=== PATIENT | female | born 1965 | race Caucasian/White ===

== ENCOUNTER 2018-07-10 16:30 | Emergency (ER) | payer OTHER ==
--- NOTE | 2018-07-10 16:33 | EDPHY ---
H & P Source: Patient Exam Limitations: No limitations Time Seen by Provider: 07/10/18 16:32 HPI/ROS: CHIEF COMPLAINT: [ ] HISTORY OF PRESENT ILLNESS: [Need 4: Location, Duration, Severity, Quality, Context, Timing Modifying Factors, Associated S&S] REVIEW OF SYSTEMS: A comprehensive 10 point review of systems is otherwise negative aside from elements mentioned in the history of present illness. (Joselito Diez) - Physical Exam Exam: General Appearance: [Alert, no distress] Eyes: [Pupils equal and round no pallor or injection] ENT, Mouth: [Mucous membranes moist] Respiratory: [There are no retractions, lungs are clear to auscultation] Cardiovascular: [Regular rate and rhythm] Gastrointestinal: [Abdomen is soft and nontender, no masses, bowel sounds normal] Neurological: [A&O, normal motor function, normal sensory exam, normal cranial nerves] Skin: [Warm and dry, no rashes] Musculoskeletal: [Neck is supple nontender] Extremities: [symmetrical, full range of motion] Psychiatric: [Patient is oriented X 3, there is no agitation] (Joselito Diez ) Departure - Departure Referrals: Patient,NotPresent [Primary Care Provider] - As per Instructions
[2018-07-10] MEDS ORDERED: NS 1,000 ML IV ONE (17:00)
[2018-07-10] MEDS ORDERED: ONDANSETRON 4 MG/2 ML VIAL IVP ONE (17:00)
[2018-07-10] MEDS ORDERED: MECLIZINE HCL 25 MG TAB PO ONE ×2 (17:01→18:28)
--- NOTE | 2018-07-10 17:06 | EDPHY ---
H & P Time Seen by Provider: 07/10/18 16:32 HPI/ROS: Chief complaint. Dizziness, vomiting HPI. 53-year-old female here by EMS. She tells me this morning she took her regular medications of Vyvanse and a steroid for colitis. These are normal meds for the patient. At about 3:00 p.m. She developed some dizziness and felt that her ears were plugged and she felt congested so she took Mucinex. 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 Her symptoms were worse with opening her eyes are moving her head. No chest pain, shortness of breath, abdominal pain. No fever cough. No recent head injury. She has been having increased episodes of vertigo lately. Patient had shoulder surgery May 2018 Prior to arrival the patient was given Phenergan by EMS. They found the patient to have a low heart rate and were concerned about bradycardia. She received 0.5 mg of atropine IV prior to arrival. This improved her heart rate and blood pressure. ROS 10 systems were reviewed and negative with the exception of the elements mentioned in the history of present illness Past Medical/Surgical History: Attention deficit hyperactivity disorder, colitis Social History: , nonsmoker, no alcohol Smoking Status: Never smoked Physical Exam: General Appearance: Alert pleasant well-developed female mild distress vital signs are stable Eyes: Pupils equal round reactive. There is no nystagmus.. ENT, tympanic membranes are normal. Pharynx without injection. Mucous membranes are moist Respiratory: There are no retractions, lungs are clear to auscultation. Cardiovascular: Regular rate and rhythm. Gastrointestinal: Abdomen is soft and nontender, no masses, bowel sounds normal. Neurological: Awake and alert, sensory and motor exams grossly normal. Dizziness with opening eyes and turning head Skin: Warm and dry, no rashes. Musculoskeletal: Neck is supple nontender. Extremities symmetrical, full range of motion. Psychiatric: Patient is oriented X 3, there is no agitation. Constitutional: Initial Vital Signs Temperature (C) 36.0 C 07/10/18 16:44 Heart Rate 85 07/10/18 16:44 Respiratory Rate 24 H 07/10/18 16:44 Blood Pressure 111/80 07/10/18 16:44 O2 Sat (%) 100 07/10/18 16:44 O2 Delivery Mode Room Air O2 (L/minute) 3 Allergies/Adverse Reactions: No Known Allergies Allergy (Unverified 07/10/18 16:53) Home Medications: Medication Instructions Recorded Meclizine HCl 25 mg PO Q6-8PRN PRN #10 tablet 07/10/18 VYVANSE 07/10/18 Medical Decision Making - Diagnostics EKG Interpretation: EKG interpreted by me shows normal sinus rhythm normal interval and axis. QRS is otherwise normal. There is no significant ST elevation or depression. There is no arrhythmia. The rate is 86 Procedures: IV normal saline , monitor Zofran IV. Meclizine by mouth ED Course/Re-evaluation: Re-evaluation 5:30 p.m.--improved. Patient and I discussed laboratory and EKG evaluation. We will continue to observe. Recheck again at 6:15 p.m.. She is much improved. She feels well to go home. Patient is ambulated in the emergency department and does so without symptoms. She is taking oral fluids without symptoms. We discussed treatment plan including criteria for return importance of follow- up and further evaluation. She expresses understanding and agreement Differential Diagnosis: This appears to be vertigo. I considered acute coronary syndrome, electrolyte abnormalities. - Data Points Laboratory Results: Laboratory Results 07/10/18 16:55 07/10/18 16:55 07/10/18 07/10/18 07/10/18 17:14 16:55 16:55 WBC 8.11 10^3/uL 10^3/uL (3.80-9.50) RBC 4.26 10^6/uL 10^6/uL (4.18-5.33) Hgb 13.6 g/dL g/dL (12.6-16.3) Hct 40.9 % % (38.0-47.0) MCV 96.0 fL fL (81.5-99.8) MCH 31.9 pg pg (27.9-34.1) MCHC 33.3 g/dL g/dL (32.4-36.7) RDW 13.2 % % (11.5-15.2) Plt Count 221 10^3/uL 10^3/uL (150-400) MPV 11.6 fL fL (8.7-11.7) Neut % (Auto) 54.6 % % (39.3-74.2) Lymph % (Auto) 35.1 % % (15.0-45.0) [place] % (Auto) 9.6 % % (4.5-13.0) Eos % (Auto) 0.0 % L % (0.6-7.6) Baso % (Auto) 0.5 % % (0.3-1.7) Nucleat RBC Rel Count 0.0 % % (0.0-0.2) Absolute Neuts (auto) 4.42 10^3/uL 10^3/uL (1.70-6.50) Absolute Lymphs (auto) 2.85 10^3/uL 10^3/uL (1.00-3.00) Absolute Monos (auto) 0.78 10^3/uL 10^3/uL (0.30-0.80) Absolute Eos (auto) 0.00 10^3/uL L 10^3/uL (0.03-0.40) Absolute Basos (auto) 0.04 10^3/uL 10^3/uL (0.02-0.10) Absolute Nucleated RBC 0.00 10^3/uL 10^3/uL (0-0.01) Immature Gran % 0.2 % % (0.0-1.1) Immature Gran # 0.02 10^3/uL 10^3/uL (0.00-0.10) Sodium 138 mEq/L mEq/L (135-145) Potassium 3.4 mEq/L L mEq/L (3.5-5.2) Chloride 105 mEq/L mEq/L (97-110) Carbon Dioxide 21 mEq/l L mEq/l (22-31) Anion Gap 12 mEq/L mEq/L (6-14) BUN 17 mg/dL mg/dL (7-23) Creatinine 0.8 mg/dL mg/dL (0.6-1.0) Estimated GFR > 60 Glucose 93 mg/dL mg/dL (70-100) Calcium 9.5 mg/dL mg/dL (8.5-10.4) POC Troponin I 0.00 ng/mL ng/mL (0.00-0.08) Medications Given: Discontinued Medications Sodium Chloride (Ns) 1,000 mls @ 0 mls/hr IV EDNOW ONE; Wide Open PRN Reason: Protocol Stop: 07/10/18 17:01 Last Admin: 07/10/18 17:09 Dose: 1,000 mls Meclizine HCl (Meclizine Hcl) 25 mg PO EDNOW ONE Stop: 07/10/18 17:02 Last Admin: 07/10/18 17:09 Dose: 25 mg Meclizine HCl (Meclizine Hcl) 25 mg PO EDNOW ONE Stop: 07/10/18 18:29 Last Admin: 07/10/18 18:38 Dose: 25 mg Ondansetron HCl (Zofran) 4 mg IVP EDNOW ONE Stop: 07/10/18 17:01 Last Admin: 07/10/18 17:09 Dose: 4 mg Point of Care Test Results: Chemistry 07/10/18 17:14 POC Troponin I 0.00 ng/mL ng/mL (0.00-0.08) Departure - Departure Disposition: Home, Routine, Self-Care Clinical Impression: Vertigo Condition: Good Instructions: Vertigo (ED) Additional Instructions: Meclizine 1 pill every 8 hr for the next 24 hr for dizziness. After 24 hr may use meclizine as needed for dizziness Return for worsening symptoms. Follow-up with ENT for further evaluation vertigo. Follow up with your regular healthcare provider in the next 1-2 days without fail for blood pressure and heart rate check. Referrals: Patient,NotPresent [Unknown] - As per Instructions Leena Mcgill MD [Medical Doctor] - 2-3 days, call for appt. Prescriptions: Meclizine HCl 25 mg PO Q6-8PRN PRN #10 tablet PRN Reason: Dizziness
[2018-07-10 17:08] LABS: PLATELET COUNT 221 10^3/uL (150-400)
--- NOTE | 2018-07-10 17:38 | CPEKG ---
Test Reason : OPEN Blood Pressure : / mmHG Vent. Rate : 086 BPM Atrial Rate : 086 BPM P-R Int : 145 ms QRS Dur : 126 ms QT Int : 417 ms P-R-T Axes : 079 005 057 degrees QTc Int : 499 ms Sinus rhythm Probable left ventricular hypertrophy Borderline prolonged QT interval Confirmed by Ankit North ([id number]) on 07/10/2018 5:37:40 PM Referred By: ANKIT NORTH Confirmed By:Ankit North
[2018-07-10 18:56] VITALS: BP 101/65
== END 2018-07-10 18:56 | disposition home or self-care (01) ==
LOC: EDUNIT#
DX: R42 Dizziness and giddiness (principal); E86.9 Volume depletion, unspecified
CPT/HCPCS: 84484-ER; 96374; J2405

== ENCOUNTER → 2018-10-17 | Outpatient (CLI) | payer OTHER | LOC: FIMAGING 12:08 | PROVIDERS: ATTEND Family Medicine | DX: Z12.31 Encounter for screening mammogram for malignant neoplasm of breast (principal); R92.2 Inconclusive mammogram ==

== ENCOUNTER → 2018-11-01 | Outpatient (CLI) | payer OTHER | LOC: FIMAGING 12:07 ==